=== PATIENT | male | born 1985 | race Caucasian/White ===

== ENCOUNTER 2019-02-17 18:50 | Emergency (ER) | payer MEDICAID, OTHER ==
[~2019-02-17] VITALS: Ht 165.1 cm; Wt 68.4 kg
[~2019-02-17 18:50] MED LIST: ACET650T85; ONDA4TAB14 PO
[2019-02-17 19:02] VITALS: BP 139/90; PULSE 91; RESP 20; Ht 165.1 cm; Wt 68.4 kg
[2019-02-17] MEDS ORDERED: ONDANSETRON (ODT) 4 MG TAB ODT STA (19:48)
== END 2019-02-17 21:00 | disposition home or self-care (01) ==
LOC: FTE 18:50
DX: K52.9 Noninfective gastroenteritis and colitis, unspecified (principal); F17.210 Nicotine dependence, cigarettes, uncomplicated
CPT/HCPCS: 80048; 83690; 85025; Z7610; 99283